=== PATIENT | female | born 1980 | race Caucasian/White ===

== ENCOUNTER 2016-07-13 00:11 | Emergency (ER) | payer MEDICAID, OTHER ==
[~2016-07-13] VITALS: Ht 167.6 cm; Wt 100.0 kg
[2016-07-13 00:26] VITALS: BP_SYST 120; BP_DIAS 8; BP_DIAS 80; PULSE 73; RESP 14; TEMP 98.2; O2SAT 96
--- NOTE | 2016-07-13 00:27 | PD ---
HPI Chief Complaint: Kelly act Time Seen by Provider: 00:17 Travel History International Travel<30 days: No Contact w/Intl Traveler<30days: No Traveled to known affect area: No History of Present Illness HPI The patient is a 35-year-old female who presents emergency Department as a transfer from [facility] as a Kelly act. According to the patient's initial history and physical the patient has been going through a divorce with her who resides in [facility]. The patient moved into the [place] with her 2 kids and currently works at [employer]. The patient has been depressed over the last 5 months and prior to her hospitalization 2 days ago, walked into the bathroom where she apparently had an episode of syncope or loss of consciousness. The patient apparently was found on the floor by her sister with left-sided weakness and spasms of the muscles of the face and was having speech difficulties. The patient had a thorough workup at [facility] that included CT and MRI, apparently it was negative. The patient was thought to possibly have conversion disorder and noted she had suicidal ideation. The patient was placed under Kelly act and transfer to [facility]. The patient is Turkmen-speaking, had a discussion with her bedside with a Turkmen-speaking employee who states the patient thinks she had a stroke 2 days ago, does note intermittent thoughts of suicide, but would never harm herself because of her children. [facility] Past Medical History Narrative Medical Possible CVA Past Surgical History Narrative Surgical Appendectomy, section Family History Narrative Family History Noncontributory Social History Alcohol Use: No Tobacco Use: No Substance Use: No Review of Systems Except as stated in HPI: all other systems reviewed are Neg HENT: No: Headaches, Lightheadedness Cardiovascular: No: Chest Pain or Discomfort Respiratory: No: Shortness of Breath Gastrointestinal: No: Nausea, Vomiting, Abdominal Pain Musculoskeletal: Positive: Weakness Neurologic: Positive: Weakness, Focal Abnormalities, No: Change in Mentation Psychiatric: Positive: Depression Physical Exam Narrative GENERAL: Awake, alert, 35-year-old female who is mostly Turkmen-speaking. SKIN: Focused skin assessment warm/dry. HEAD: Atraumatic. Normocephalic. EYES: Pupils equal and round. No scleral icterus. No injection or drainage. ENT: No nasal bleeding or discharge. Mucous membranes pink and moist. NECK: Trachea midline. No JVD. CARDIOVASCULAR: Regular rate and rhythm. No murmur appreciated. RESPIRATORY: No accessory muscle use. Clear to auscultation. Breath sounds equal bilaterally. GASTROINTESTINAL: Abdomen soft, non-tender, nondistended. No rebound tenderness. MUSCULOSKELETAL: No obvious deformities. No clubbing. No cyanosis. No edema. NEUROLOGICAL: Awake and alert. 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 Patient does distort her mouth to the right, however , when she smiles appears symmetric. No drift of the upper extremities. The patient would not raise her left leg against gravity, however, when I raised that she was able to hold it up. The patient's exam was not repeatable. Sensation appeared to be intact both upper and lower extremities. She would follow simple commands. PSYCHIATRIC: Appropriate mood and affect; insight and judgment normal. [facility] Medical Decision Making Medical Screen Exam Complete: Yes Emergency Medical Condition: Yes Medical Record Reviewed: Yes Interpretation(s) Results from [facility] MRI cervical spine reveals no acute abnormality of the cervical spine MRA of the neck with and without contrast reveals no significant stenosis of the carotid arteries or vertebral arteries. Chest x-ray unremarkable CMP revealed sodium 139, potassium 4.1, chloride 104, CO2 24, glucose 92, BUN 7 , creatinine 0.83, calcium 8.8, total protein 7.1, albumin 3.8, total bili 0.6, alkaline phosphatase 57, AST 17, AST 20, anion gap 11, GFR greater than 110 CBC revealed WBC is 7.1, hemoglobin 14.8, hematocrit 44, platelet count 311 CT imaging of the neck with and without contrast revealed no significant stenosis of the arteries CT angiogram head revealed no evidence of occlusion or hemodynamically significant stenosis CT the brain revealed no acute intracranial abnormality Troponin less than 0.01 Lactic acid 1 PT 12.7, INR 1, PTT 26.7 Differential Diagnosis Differential diagnoses includes depressive disorder NOS, TIA, CVA, intracranial hemorrhage, conversion disorder. Narrative Course I reviewed the patient's workup from her previous hospitalization, the patient a multiple studies done including an MRI of the spine which revealed no acute abnormality the cervical spine. The patient had an MRA of the neck with and without contrast which revealed no significant stenosis of the right internal carotid artery and no significant stenosis of the left internal carotid artery. No significant stenosis of the vertebral arteries. Chest x-ray revealed no acute disease. The patient had normal blood work including CMP, CBC, and coags. The patient is medically clear to be evaluated by psychiatry. Disposition as per psych. Diagnosis Primary Impression: Suicidal ideation Additional Impression: Conversion disorder Condition: Stable Pantera Odonnell MD July 13, 2016 00:27
[2016-07-13 06:18] VITALS: BP 115/75; PULSE 76; RESP 14; O2SAT 98
[2016-07-13] MEDS ORDERED: ASPI81CH CHEW (07:28)
[2016-07-13] MEDS ORDERED: ACET325T PO (07:28)
[2016-07-13] MEDS ORDERED: DEXT1LIQ15 PO (07:28)
[2016-07-13] MEDS ORDERED: ENOX40IN SQ (07:28)
[2016-07-13] MEDS ORDERED: NITR1SUB3 SL (07:28)
[2016-07-13] MEDS ORDERED: SIMV40TA PO (07:28)
[2016-07-13] MEDS ORDERED: FAMO40TA PO (07:28)
[2016-07-13] MEDS ORDERED: DIPH50IN2 IV PUSH (07:28)
[2016-07-13] MEDS ORDERED: OXYC1TAB63 PO (07:28)
[2016-07-13] MEDS ORDERED: COLA100C3 PO (07:28)
[2016-07-13] MEDS ORDERED: FLUO20CA4 PO (07:28)
[2016-07-13] MEDS ORDERED: CYCL1TAB29 PO (07:28)
[2016-07-13] MEDS ORDERED: ONDA4INJ2 IV PUSH (07:28)
[2016-07-13] MEDS ORDERED: ALPR.5 PO (07:28)
[2016-07-13] MEDS ORDERED: TRAZ50TA12 PO (07:28)
[2016-07-13 08:33] VITALS: BP 117/73; PULSE 91; RESP 18; O2SAT 96
--- NOTE | 2016-07-13 11:21 | PD ---
History of Present Illness Chief Complaint: Psychiatric Symptoms Time Seen by Provider: 10:45 Travel History International Travel<30 Days: No Contact w/Intl Traveler<30days: No Known affected area: No Legal Status Legal Status: Kelly Act History of Present Illness: History of Present Illness HPI The patient is a 35-year-old female with no previous psychiatric history who presents to emergency Department under a Kelly Act as a transfer from [facility]. The BA states that the patient has depression with suicidal ideation. According to records as well as information obtained thru patient interview the sadia moved from the [place] 5 months ago. Her significant other remained there and they maintained communication via social media. On the day the patient present ed to ed she had received a picture of her significant other with another woman. She called him and they had an argument. She went to bed but was distressed over the situation,. She woke up and experienced numbness of the left side of her face as well as inability to move her left hand and her left leg. She was evaluated at [facility] with no positive findings and diagnosed with functional neurological symptom disorder . While at [facility] she was placed under a BA as she shared with them that she had experienced suicidal thoughts in the past. The patient has never attempted to harm herself and has no suicidal plan. While at she was started on Prozac and trazodone. The patient is seen in main Ed. She is awake, alert and oriented female who appears stated age. She is maintaining basic hygiene. She is engaging and cooperative. Speech is clear, logical and goal directed of normal rate, tone and rhythm. She communicates in Croatian. Her thoughts are clear, logical and devoid from any hallucinations, delusions , paranoia. Her mood is anxious. Not significantly depressed. There is no suicidal or homicidal ideation, intent or plan. She admits to having fleeting thoughts of suciide but has no plan or intent and states that she would never harm herself because of her children . Concentration and attention are WNL. Average fund of knowledge. The patient is future oriented and speaks of her children, her family and her work as well as of her need to continue to strive to " get ahead in this country in order to be able to have my significant other join us". She has good family support. PFSH Past Medical History ?: Unknown Past Surgical History Appendectomy: Yes Psychiatric History Psychiatric History Hx Psychiatric Treatment: No previous psych hx History of Inpatient Treatment: No Guns or firearms in home: No Social History Single mother of 2 children ages 12 years and 8 months. [place] raised [place] . Moved to [facility] 5 months ago. Lives with her sister. Works at [employer]. Hx Alcohol Use: No Hx Tobacco Use: No Hx Substance Use: No Hx of Substance Use Treatment: No Family Psychiatric History Negative Allergies-Medications (Allergen,Severity, Reaction): Coded Allergies: No Known Allergies (Unverified , 07/13/16) Reported Meds & Prescriptions Reported Meds & Active Scripts Active Reported Delsym Cough Chest Congestion (Dextromethorphan-Guaifenesin Liq) 5-100 Mg/5 Ml Liq 10 Ml PO Q4H PRN Colace (Docusate Sodium) 100 Mg Cap 100 Mg PO BID PRN Diphenhydramine Inj (Diphenhydramine HCl) 50 Mg/Ml Inj 25 Mg IV PUSH Q6HR PRN Nitroglycerin SL (Nitroglycerin) 0.4 Mg Subl 0.4 Mg SL DIRECTED PRN ONE TABLET UNDER THE TONGUE NEEDED FOR CHEST PAIN, MAY REPEAT EVERY FIVE MINUTES FOR A TOTAL OF 3 DOSES OR CALL 911 IF NO RELIEF Ondansetron Inj (Ondansetron HCl) 4 Mg/2 Ml Inj 4 Mg IV PUSH Q4HR PRN Xanax (Alprazolam) 0.5 Mg Tab 0.5 Mg PO TID PRN Acetaminophen 325 Mg Tab 650 Mg PO Q4H PRN Oxycodone-Acetaminophen 5-325 mg Tab 1 Tab PO Q4H PRN Fluoxetine (Fluoxetine HCl) 20 Mg Cap 20 Mg PO DAILY Trazodone (Trazodone HCl) 50 Mg Tab 25 Mg PO HS Simvastatin 40 Mg Tab 40 Mg PO HS Famotidine 40 Mg Tab 40 Mg PO DAILY Enoxaparin Inj (Enoxaparin Sodium) 40 Mg/0.4 Ml Syr 40 Mg SQ DAILY Aspirin 81 Mg Chew 81 Mg CHEW DAILY Flexeril (Cyclobenzaprine HCl) 10 Mg Tab 10 Mg PO TID Review of Systems Except as stated in HPI: all other systems reviewed are Neg Psychiatric: COMPLAINS OF: Anxiety Exam Alert: Yes [place]: Person (ox4) Mood: Calm Affect: Appropriate Speech: Clear, Logical Eye Contact: Normal Memory Intact: Comment (no impairmetn) Hallucinations: Other (negative) Delusions: No Suicidal: Plan (denies), Ideation (denies any) Homicidal: Ideation (negative) Insight/Judgement Fair. Not impaired. MDM Medical Decision Making Medical Record Reviewed: Yes Assessment/Plan 35 year old female with symptoms indicative of functional neurological symptom disorder. This condition does not respond well to inpatient psychiatric treatment or to pharmacologic therapy. It is recommended she engage in outpatietn counseling to address current stressors as well as to increase coping skills. Extensive psychoeducation is provided. Does not meet BA criteria. Will lift BA Does not meet criteria for inpatient treatment Has been started on antidepressant Prozac and Trazodone for sleep Cleared from psychiatry for discharge. JULIANO Mclean informed of findings Orders Diet Regular Basic (07/13/16 Breakfast) Results Vital Signs Date Time Temp Pulse Resp B/P Pulse Ox O2 Delivery O2 Flow Rate FiO2 07/13/16 08:33 91 18 117/73 96 Room Air 07/13/16 06:18 76 14 115/75 98 Room Air 07/13/16 00:26 98.2 73 14 120/80 96 Diagnosis Primary Impression: Functional neurological symptom disorder with weakness or paralysis Additional Impression: Adjustment disorder Med/ Other Pt Specific Info: No Change to Meds Disposition: 01 DISCHARGE HOME Condition: Stable Problem Qualifiers Additional Impression: Adjustment disorder Qualified Code: F43.22 - Adjustment disorder with anxious mood Brina Andre July 13, 2016 11:20
== END 2016-07-13 13:45 | disposition home or self-care (01) ==
LOC: NEPD 00:11
DX: F43.22 Adjustment disorder with anxiety (principal); R29.818 Other symptoms and signs involving the nervous system; R53.1 Weakness
CPT/HCPCS: 99283